=== PATIENT | female | born 1980 | race Hispanic/Latino ===

== ENCOUNTER 2016-09-19 03:31 | Emergency (ER) | payer SELFPAY ==
[~2016-09-19] VITALS: Ht 157.5 cm; Wt 65.8 kg
[2016-09-19] MEDS ORDERED: NORCO 5-325 TA1 EACH PO (06:07)
[2016-09-19] MEDS ORDERED: NAPROXEN375 MG PO (06:07)
[2016-09-19] MEDS ORDERED: DOXYCYCLINE HY100 MG PO (06:07)
[2016-09-19] MEDS ORDERED: ZOFRAN ODT4 MG PO (06:07)
== END 2016-09-19 06:20 | disposition home or self-care (01) ==
LOC: ED 03:31
DX: N39.0 Urinary tract infection, site not specified (principal); F17.200 Nicotine dependence, unspecified, uncomplicated
CPT/HCPCS: 74176; 80053; 81001; 83690; 84703; 85025; 87491; 87591; 96361; 96374; 96375; 99284; J0696; J1885; J2405; J3010; J7030